=== PATIENT | male | born 1975 | race Caucasian/White ===

== ENCOUNTER 2019-03-15 19:17 | Emergency (ER) | payer MEDICAID, MEDICARE, OTHER ==
[~2019-03-15] VITALS: Ht 180.3 cm; Wt 68.0 kg
[~2019-03-15 19:17] MED LIST: ABILIFY20 MG ORAL; COGENTIN1 MG ORAL; COLACE100 MG ORAL; DEPAKOTE500 MG PO; DRISDOL50000 UNIT ORAL; FERROUS SULFAT325 MG ORAL; NKM; RANITIDINE HCL150 MG ORAL; RISPERDAL2 MG ORAL; VITAMIN B-1100 MG ORAL
[2019-03-15] MEDS ORDERED: Haloperidol 5mg/ml Inj ONE (19:19)
[2019-03-15] MEDS ORDERED: Haloperidol 5mg/ml Inj IM ONE (19:30)
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
[2019-03-15 20:08] VITALS: BP 138/79
[2019-03-15 20:11] LABS: BASOPHILS % (AUTO) 0.8 % (0.0-2.0); EOSINOPHILS % (AUTO) 0.1 % (0.0-3.0); HEMATOCRIT 45.6 % (42.0-52.0); HEMOGLOBIN 15.5 G/DL (14.2-18.0); LYMPHOCYTES % (AUTO) 7.9 % (20.0-45.0); MEAN CORPUSCULAR VOLUME 94 FL (80-99); MONOCYTES % (AUTO) 9.1 % (1.0-10.0); NEUTROPHILS % (AUTO) 82.1 % (45.0-75.0); PLATELET COUNT 218 K/UL (150-450); RED BLOOD COUNT 4.87 M/UL (4.70-6.10); RED CELL DISTRIBUTION WIDTH 10.9 % (11.6-14.8); WHITE BLOOD COUNT 15.1 K/UL (4.8-10.8)
[2019-03-15 20:28] LABS: ANION GAP 10 mmol/L (5-15); BLOOD UREA NITROGEN 21 mg/dL (7-18); CALCIUM 9.6 MG/DL (8.5-10.1); CARBON DIOXIDE 26 MMOL/L (21-32); CHLORIDE 102 MMOL/L (98-107); CREATININE 1.4 MG/DL (0.55-1.30); SODIUM 138 MMOL/L (136-145)
[2019-03-15] MEDS ORDERED: LORazepam Inj 2mg/ml 1ml IV ONE (20:30)
[2019-03-15 20:42] LABS: ALANINE AMINOTRANSFERASE 45 U/L (12-78); ALBUMIN 3.9 G/DL (3.4-5.0); ALKALINE PHOSPHATASE 133 U/L (46-116); ASPARTATE AMINO TRANSFERASE 68 U/L (15-37); BILIRUBIN,TOTAL 0.4 MG/DL (0.2-1.0); CREATINE KINASE 2405 U/L (26-308)
[2019-03-15 22:00] VITALS: BP 118/68
--- NOTE | 2019-03-15 22:03 | NUR ---
ED Nurse Note: lactic reflex sent to lab.
[2019-03-15 23:15] VITALS: BP 116/68
--- NOTE | 2019-03-15 23:15 | NUR ---
ED Nurse Note: pt cleared to be d/c per ermd, pt medical clearance paperwork for booking given, pt advised to follow up with retirement medical staff, pt advised to stop doing substance drugs, pt education done, vss, iv d/c and id band removed, pt care endorsed to [employer] officers, pt accompanied by [employer] and left w all belongings.
== END 2019-03-15 23:15 ==
LOC: EDBD 19:17 → EMR 19:28
DX: R41.82 Altered mental status, unspecified (principal); F15.10 Other stimulant abuse, uncomplicated; R74.8 Abnormal levels of other serum enzymes; R45.1 Restlessness and agitation; Z78.1 Physical restraint status
CPT/HCPCS: 36415; 80053; 80307; 82550; 83605; 84484; 85025; 96361; 96372; 96374; 99284; G0480; J1630; 80329

== ENCOUNTER 2020-04-13 22:19 | Emergency (ER) | payer SELFPAY ==
--- NOTE | 2020-04-13 22:25 | NUR ---
Pt called for triage, no answer, not in lobby.
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
== END 2020-04-13 22:59 | disposition left against medical advice (07) ==
LOC: EMR 22:52
DX: S69.92XA Unspecified injury of left wrist, hand and finger(s), initial encounter (principal); Z53.21 Procedure and treatment not carried out due to patient leaving prior to being seen by health care provider; X58.XXXA Exposure to other specified factors, initial encounter; Y92.9 Unspecified place or not applicable